=== PATIENT | male | born 1975 | race Hispanic/Latino ===

== ENCOUNTER 2023-03-30 16:40 | Emergency (ER) | payer OTHER ==
[~2023-03-30] VITALS: Ht 154.9 cm; Wt 63.5 kg
[2023-03-30 16:44] VITALS: BP 140/92; PULSE 104; RESP 16
[2023-03-30] MEDS ORDERED: AMOX-426 PO (17:12)
[2023-03-30] MEDS ORDERED: IBUP-2070 PO (17:12)
[2023-03-30] MEDS ORDERED: KETOROLAC 30MG VIAL (30MG/ML) IM ONE (17:30)
[2023-03-30] MEDS ORDERED: ACETAMINOPHEN WITH CODEINE 1 TAB TAB PO ONE (17:30)
[2023-03-30] MEDS ORDERED: AMOX/CLAV 500/125MG TAB PO ONE (17:30)
== END 2023-03-30 17:44 | disposition home or self-care (01) ==
LOC: EDH 16:40
DX: L05.91 Pilonidal cyst without abscess (principal); W18.39XA Other fall on same level, initial encounter; Y93.67 Activity, basketball; Y92.89 Other specified places as the place of occurrence of the external cause; Y99.8 Other external cause status
CPT/HCPCS: 99283; 96372; J1885